=== PATIENT | female | born 1955 | race Caucasian/White ===

== ENCOUNTER 2017-07-07 18:26 | Inpatient (IN) ==
[2017-07-07] MEDS ORDERED: ASPIRIN 325 MG TABLET PO STA (19:02)
--- NOTE | 2017-07-07 19:31 | XRay Report ---
Portable chest Date: 07/07/2017 Clinical history: Chest pain Comparison: None Technique: Portable AP sitting chest Findings: The heart is borderline in size with cardiac fat pads and minimal uncoiling on the aorta. Calcified granulomata/nodes with minimal diffuse parenchymal findings at the lung bases. Degenerative changes are noted. Impression: Old healed granulomatous disease. Cardiac fat pads with atelectasis at the lung bases where it is difficult to exclude minimal infiltration/edema. PROCEDURE INTERPRETED AT [facility] DEPARTMENT OF RADIOLOGY Final Report Signed by: Dr. Blanka Bell
[2017-07-07 19:41] LABS: Basophils % 0.3 % (0.0-0.8); Eosinophils % 0.1 % (0.00-10.9); Hematocrit 41.2 VOL% (35.7-47.0); Immature Granulocytes % 0.5 %; Immature Granulocytes Absolute 0.07 #; Lymphocytes # 1.1 10*3/uL (1.4-4.0); Mean Corpuscular Hemoglobin 31 PG (27-34); Mean Corpuscular Volume 89.8 FL (87-102); Mean Platelet Volume 10.1 FL (9.6-12.0); Monocytes # 0.5 10*3/uL (0.11-0.8); Monocytes % 3.3 % (1.7-12.7); Neutrophils % 87.8 % (38.7-73.9); Platelet Count 275 T/CUMM (130-400); Red Blood Count 4.59 MC/CUMM (3.8-5.5); Red Cell Distribution Width 13.6 % (9.3-17.3); White Blood Count 13.7 T/CUMM (4-12)
[2017-07-07] MEDS ORDERED: ASPIRIN 325 MG TABLET ONE (19:44)
[2017-07-07 20:11] LABS: Calcium 9.6 MG/DL (8.5-10.1); Magnesium 2.6 MG/DL (1.8-2.4); Osmolality,Calculated 284.3 MOS/KG (273-304); Potassium 4.6 MMOL/L (3.5-5.1)
[2017-07-07] MEDS ORDERED: MAGNESIUM SULF RIDER 2 GM in PREMIX 1 EACH IV PRN (20:50)
[2017-07-07] MEDS ORDERED: MORPHINE 2 MG/1 ML SYRINGE IV PRN (20:50)
[2017-07-07] MEDS ORDERED: ENOXAPARIN 80 MG/0.8 ML SYRINGE SUBCUT STA (20:52)
--- NOTE | 2017-07-07 20:54 | Emergency Department Note ---
IKatelyn Emily, am scribing for, and in the presence of, Davey Alexis MD 19: 05. IReuben Kevin Lee, MD, personally performed the services described in this documentation, ascribed by Kenna Zepeda in my presence, and it is both accurate and complete . Arrival - Arrival Chief Complaint: Chest Pain Stated Complaint: chest pain ED Nursing Triage Note: PT C/O LEFT UPPER CHEST PAIN, ONSET AT 1600. PT WAS WATCHING TV AT ONSET. REPORTS GETTING REAL HOT AND VOMITED. STATES PAIN COMES AND GOES. Mode of Arrival: Ambulatory Limitations: No Limitations Source: Patient - History of Present Illness HPI Narrative: Pt is a 62 y/o female who came to ED with c/o chest pain while watching TV at 4pm. Pt had mild nausea with vomiting once that was water, but denies lifting heavy objects, rash, SOB, or fevers. Pt describes pain as moderate and sharp but comes in waves. PMHx of stroke in April 2017 with residual slurred speech. Pt has PCP in Dr. Musa Chvaez. Onset (ago): hour(s) Consistency: intermittent Severity: moderate Severity scale (1-10): 5 Quality: sharp Allergies/Adverse Reactions: Allergies Allergy/AdvReac Type Severity Reaction Status Date / Time No Known Allergies Allergy Verified 07/07/17 18:52 Home Medications: Home Medications Medication Instructions Recorded Confirmed Type Amlodipine Besylate 5 mg PO QAM 07/07/17 07/07/17 History Aspirin EC Tab 81 mg PO QAM 07/07/17 07/07/17 History Review of System - Review of System 12 point system: reviewed and no additional remarkable complaints except as stated - Review of System Constitutional: Absent: chills, fever Respiratory: Absent: cough, respiratory distress Cardiovascular: Present: chest pain (non radiating). Absent: dyspnea on exertion, edema, syncope Gastrointestinal: Present: nausea, vomiting (once). Absent: abdominal pain, diarrhea Musculoskeletal: Absent: arm pain, back pain, neck pain Skin: Absent: rash Neurological: Absent: headache Medical,Surgical,& Family Hx - Medical History Cardio: History of: Hypertension Neurology: History of: Cerebrovascular Accident (APRIL 2017) - Surgical History Surgical History: noncontributory - Family History Family History: noncontributory - Social History Smoking Status: Current every day smoker Frequency of Alcohol Use: None Type of Drug Use: None Marital Status: Single Lives With:: Alone Functional capacity: independent ambulation Exam Vital Signs: Vital Signs Temperature 97.8 F 07/07/17 19:00 Pulse Rate 74 07/07/17 19:00 Respiratory Rate 18 07/07/17 19:00 Blood Pressure 181/81 07/07/17 19:00 O2 Sat by Pulse Oximetry 97 07/07/17 19:30 - General General appearance: alert, in no apparent distress - Head Head exam: Present: atraumatic, normocephalic - Eye Eye exam: Present: PERRL, EOMI - ENT ENT exam: Present: mucous membranes moist. Absent: mucous membranes dry - Neck Neck exam: Present: full ROM, trachea midline - Chest Chest inspection: Present: symmetric chest wall rise. Absent: tenderness - Respiratory Respiratory exam: Present: normal lung sounds bilaterally. Absent: accessory muscle use, respiratory distress - Cardiovascular Cardiovascular exam: Present: regular rate, normal rhythm, normal heart sounds - Extremities Exam Extremities exam: Present: full ROM - Neurological Exam Neurological exam: Present: alert, oriented X3, CN II-XII intact, other ( slurred speech residual from previous stroke) - Psychiatric Psychiatric exam: Present: normal affect, normal mood - Skin Skin exam: Present: warm, dry Course Course Narrative: concerning hx with elvated trop will admit for cath vs stress test and serial enzymens Results - Labs CBC & BMP: 07/07/17 19:25 07/07/17 19:25 Lab Results: I have reviewed the patients labs Labs: Laboratory Tests 07/07/17 19:25 WBC 13.7 H RBC 4.59 Hgb 14.0 Hct 41.2 Plt Count 275 Neut % (Auto) 87.8 H Lymph % (Auto) 8.0 L Neut # (Auto) 12.0 H Lymph # (Auto) 1.1 L Laboratory Tests 07/07/17 19:25 Sodium 141 Potassium 4.6 Chloride 106 Carbon Dioxide 29 Anion Gap 10.6 BUN 22 H Creatinine 0.80 GFR Calculation 83 BUN/Creatinine Ratio 27.00 H Glucose 111 H Calculated Osmolality 284.3 Calcium 9.6 Magnesium 2.6 H Laboratory Tests 07/07/17 19:25 Troponin I 0.274 H - Diagnostic Findings Procedure: Chest x-ray: report reviewed by me (Old healed granulomatous disease. Cardiac fat pads with atelectasis at the lung bases where it is difficult to exclude minimal infiltration/edema.) Disposition Clinical Impression: NSTEMI (non-ST elevated myocardial infarction) Case discussed with: patient Disposition: Still a Patient Condition: Stable
[2017-07-07] MEDS ORDERED: ENOXAPARIN 80 MG/0.8 ML SYRINGE SUBCUT ONE (21:08)
[2017-07-07] MEDS ORDERED: NICOTINE 21 MG/24 HR PATCH TRANSDERM PRN (22:00)
[2017-07-07] MEDS ORDERED: MAGNESIUM SULF RIDER 4 GM in PREMIX 1 EACH IV PRN (22:00)
--- NOTE | 2017-07-08 04:04 | EKG Report ---
Please refer to the EKG image. Final interpretation is pending.
--- NOTE | 2017-07-08 04:05 | EKG Report ---
Stationary ECG Study 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
--- NOTE | 2017-07-08 05:58 | EKG Report ---
Please refer to the EKG image. Final interpretation is pending.
[2017-07-08] MEDS ORDERED: MAGNESIUM SULF RIDER 2 GM in PREMIX 1 EACH IV PRN (08:32)
[2017-07-08] MEDS ORDERED: DIAZEPAM 5 MG TABLET PO ONE (08:32)
[2017-07-08] MEDS ORDERED: POTASSIUM CHLORIDE RIDER 10 MEQ in PREMIX 1 EACH IV PRN (08:32)
[2017-07-08] MEDS ORDERED: diphenhydrAMINE CAP 25 MG CAPSULE PO ONE (08:32)
--- NOTE | 2017-07-08 08:37 | Cardiology History & Physical ---
I, Nini Nunes NP, am scribing for, and in the presence of, Luis Fernando Menendez MD 08:34. Assessment and Plan (1) CVA, old, aphasia Status: Acute Current Visit: Yes (2) NSTEMI (non-ST elevated myocardial infarction) Status: Acute Assessment and plan: 1. 62-year-old female smoker with history of stroke April 2017 now with 2 hours of chest discomfort or diaphoresis ruled in for non-STEMI 2. She has no recurring pain and EKG shows no acute changes 3. Agree with aspirin and Lovenox 4. At high intensity statin therapy 5. Heart catheterization today to define her coronary anatomy with intervention is appropriate 6. We discussed the absolute necessity of completely stopping all cigarette smoking I discussed with the patient the risks and benefits of heart catheterization including but not limited to: , stroke, heart attack, vascular damage, reaction to medicine or dye, bleeding requiring blood transfusion, failure of the procedure, and the possible need for planned or emergency surgery. I have answered all the patient's questions regarding the procedure, and the patient is agreeable to proceed. Current Visit: Yes History of Present Illness Chief complaint: Chest pain History of present illness: DIRECTOR SPORTS: Dr. Menendez (new) PCP: Dr. Humberto khoury Ms. Garcia is a 62 WF, with no prior history of cardiac problems. The patient came in to the ER yesterday afternoon after experiencing a sharp pain under her left armpit. The patient states she was sitting in her chair when this occurred , she immediately felt hot, became diaphoretic, and nauseated with vomiting 1. The patient denies aggravating or relieving factors, but the pain did eventually go away. She does report some reproducible soreness to the left chest wall this morning. The patient denies fatigue, shortness of breath, edema to the extremities. The patient's cardiac risk factors are significant for smoking, stroke, hypertension, Home Medications Medication Instructions Recorded Confirmed Type Amlodipine Besylate 5 mg PO QAM 07/07/17 07/07/17 History Aspirin EC Tab 81 mg PO QAM 07/07/17 07/07/17 History Allergies Allergy/AdvReac Type Severity Reaction Status Date / Time No Known Allergies Allergy Verified 07/07/17 18:52 Medical,Surgical,& Family Hx - Medical History Cardio: History of: Hypertension No history of: Aneurysm, Cardiac Dysrhythmia, Cerebrovascular Disease, Congenital Heart Disease, CHF, CAD, MS, Pacemaker, PVD, Valvular Heart Disease, Cardiovascular Problems Neurology: History of: Cerebrovascular Accident (APRIL 2017) No history of: Brain Aneurysm, Cerebral Hemorrhage, Cerebral Palsy, Dementia , Migraine, Multiple Sclerosis, Parkinson's Disease, Peripheral Neuropathy, Seizures, TIA, Vertigo, Neurologocal Cancer Endocrine: No history of: Dyslipidemia Respiratory: No history of: Asthma, Bronchitis, COPD, Intubation, Obstructive Sleep Apnea , Pulmonary Embolism, Pulmonary Hypertension, Pneumonia, Lung Cancer, Respiratory Problems Renal: No history of: Renal (Kidney) Cancer, Dialysis, Renal Failure, Renal Problems Genitourinary: No history of: Bladder Problem, Kidney Stones, Recurring Urinary Tract Infections, Genitourinary Cancer, Problems Gastrointestinal: No history of: Bowel Obstruction, Clostridium Difficile, Crohn's Disease, Diverticulitis/ Diverticulosis, Esophageal Varices, GERD, Gastrointestinal Bleed , Hemorrhoids, Hematochezia, Hepatitis, Liver Problems, Pancreatitis, Polyps, Ulcerative Colitis, Gastrointestinal Cancer, GI Problems - Surgical History Cardiac Surgeries: Patient Denies: Femoral-Popliteal Bypass Graft, Cardiac Catheterization, Cardiac Surgery, Carotid Endarterectomy, Internal Defibrillator, Vascular Access Devices Thoracic Surgeries: Patient denies;: Kidney (Renal Surgery), Lithotripsy, Nephrectomy, Lobectomy Neurologic Surgeries: Patient denies: Brain Aneurysm, Cerebral Hemorrhage, Neurologic Surgery HEENT Surgeries: Patient denies: Carotid Endarterectomy Abdominal Surgeries: Patient denies: Abdominal Surgery, Appendectomy, Cholecystectomy, Colonoscopy , Gastric Bypass Surgery, EGD, Hernia Repair, Splenectomy Reproductive Surgeries: Patient denies;: Breast Surgery, Section, Cystoscopy, Dilation and Curettage, Genitourinary Surgery, Gynecologic Surgery, Hysterectomy, Tubal Ligation - Social History Smoking Status: Current every day smoker Frequency of Alcohol Use: None Type of Drug Use: None Cardiology Physical Exam - Constitutional Vitals: Vital Signs Temp Pulse Resp BP Pulse Ox 98.1 F 64 18 138/82 98 07/08/17 07:46 07/08/17 07:46 07/08/17 07:46 07/08/17 07:46 07/08/17 07:46 Intake and Output 07/07/17 07/08/17 07/08/17 23:59 07:59 15:59 Intake Total 200 / 200 Balance 200 / 200 Intake: Oral 200 / 200 Other: Voiding Method Toilet # Voids 1 # Bowel Movements 0 Weight 160 lb 160 lb Patient Weight 07/08/17 23:59 Weight 160 lb General appearance: normal weight, no acute distress - Head Head exam: Present: normal inspection, normocephalic, atraumatic - Neck Neck exam: Present: normal inspection - Respiratory Respiratory exam: Present: rales. Absent: rhonchi, stridor, wheezes - Cardiovascular Cardiovascular exam: Present: regular rate and rhythm. Absent: diastolic murmur , rubs, systolic murmur - GI/Abdominal GI/Abdominal exam: Present: soft. Absent: tenderness - Extremities Exam Extremities exam: Absent: edema Result/EKG - Labs CBC & BMP: 07/07/17 19:25 07/07/17 19:25 Labs: Laboratory Results - last 24 hr 07/07/17 07/07/17 07/07/17 19:25 19:25 19:25 WBC 13.7 H RBC 4.59 Hgb 14.0 Hct 41.2 MCV 89.8 MCH 31 MCHC 34.0 RDW 13.6 Plt Count 275 MPV 10.1 Neut % (Auto) 87.8 H Lymph % (Auto) 8.0 L [place] % (Auto) 3.3 Eos % (Auto) 0.1 Baso % (Auto) 0.3 Neut # (Auto) 12.0 H Lymph # (Auto) 1.1 L [place] # (Auto) 0.5 Eos # (Auto) 0.0 Baso # (Auto) 0.0 Immature Gran % 0.5 Nucleated RBC % 0.0 Immature Gran # 0.07 Nucleated RBCs # 0.00 Immature Plt Fraction 0.0 Sodium 141 Potassium 4.6 Chloride 106 Carbon Dioxide 29 Anion Gap 10.6 BUN 22 H Creatinine 0.80 GFR Calculation 83 BUN/Creatinine Ratio 27.00 H Glucose 111 H Calculated Osmolality 284.3 Calcium 9.6 Magnesium 2.6 H Troponin I 0.274 H 07/07/17 07/08/17 23:40 02:44 WBC RBC Hgb Hct MCV MCH MCHC RDW Plt Count MPV Neut % (Auto) Lymph % (Auto) [place] % (Auto) Eos % (Auto) Baso % (Auto) Neut # (Auto) Lymph # (Auto) [place] # (Auto) Eos # (Auto) Baso # (Auto) Immature Gran % Nucleated RBC % Immature Gran # Nucleated RBCs # Immature Plt Fraction Sodium Potassium Chloride Carbon Dioxide Anion Gap BUN Creatinine GFR Calculation BUN/Creatinine Ratio Glucose Calculated Osmolality Calcium Magnesium Troponin I 2.090 H D 3.910 H D Quality Measures - Stroke Symptom Onset Unknown: No I, Luis Fernando Menendez MD, personally performed the services described in this documentation, ascribed by Nini Nunes NP in my presence, and it is both accurate and complete 837 .
[2017-07-08] MEDS ORDERED: LIDOCAINE 1% 20 ML VIAL ONE (08:42)
[2017-07-08] MEDS ORDERED: DIAZEPAM 5 MG TABLET ONE (08:47)
[2017-07-08] MEDS: SODIUM CHLORIDE 0.45% 1,000 ML IV SCH ×2 (08:58→18:05)
[2017-07-08] MEDS: ATORVASTATIN 80 MG TABLET PO SCH ×2 (08:58→08:59)
[2017-07-08] MEDS ORDERED: HYDROmorphone 2 MG/1 ML VIAL ONE (08:59)
[2017-07-08] MEDS ORDERED: MIDAZOLAM 2 MG/2 ML VIAL ONE (09:00)
[2017-07-08] MEDS ORDERED: ENOXAPARIN 60 MG/0.6 ML SYRINGE ONE (09:22)
[2017-07-08] MEDS ORDERED: TICAGRELOR 90 MG TABLET ONE (09:23)
[2017-07-08] MEDS ORDERED: NITROGLYCERIN SL 0.4 MG TABLET SL PRN (09:37)
[2017-07-08] MEDS ORDERED: HYDROmorphone 2 MG/1 ML VIAL IV PRN (09:37)
[2017-07-08] MEDS ORDERED: ZALEPLON 5 MG CAPSULE PO PRN (09:37)
--- NOTE | 2017-07-08 09:47 | Cardiac Catheterization ---
Date of Procedure:: 07/08/17 Post-op diagnosis: same Procedure: Procedure performed: 1. Left heart catheterization 2. Coronary angiography 3. Left ventriculography 4. Angioplasty and stenting of mid RCA with drug-eluting stent (3.5 x 23 [place]'s ) 5. Right femoral arterial be closed with Angio-Seal device Brief clinical summary: Ms. Garcia is a 62-year-old smoker with stroke earlier this year who presented with non-STEMI after 2 hours of chest discomfort. Description of procedure: After obtaining informed consent, the right groin was prepped and draped in the usual sterile fashion. Next a short 6 [place] sheath was placed in the right femoral artery using a modified Seldinger technique, after the patient received IV sedation and local anesthetic. Next a JL4 catheter was advanced over a guidewire under fluoroscopic guidance, and was engaged to the left coronary artery after which angiography was performed in multiple views. This was then removed over a wire, and a JR4 catheter was advanced in similar fashion, and was engaged to the right coronary artery after which angiography was performed in multiple views. Next a bent pigtail catheter was advanced into the left ventricle, where hemodynamic measurements were obtained, and left ventriculography was performed. Percutaneous coronary intervention was then performed as described below. After intervention, an angiogram of the sheath showed that it was inserted in the right common femoral artery in a vessel suitable for closure. Hemostasis was obtained with Angio- Seal device with no residual bleeding. 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 Percutaneous coronary mention: The patient received Lovenox full dose just over 12 hours ago. I gave an additional 0.5 mg/kg of intravenous Lovenox prior to procedure. She is Hu on aspirin we loaded her with Brilinta on the table before the procedure. A hockey-stick 1 guiding cath was advancing his right coronary artery provided fair support. Next a pro-water wire was advanced to the distal RCA little difficulty. Next a 3.0 x 15 noncompliant balloon was advanced crosshair disease was dilated to just under nominal pressures. This was then removed a 3.5 x 23 mm Jani stent was advanced crosshair disease was deployed at nominal pressures. The stent appeared slightly undersized so I dilated to rated burst pressure of 3.1 mm which achieved an excellent radiographic result. The patient tolerated procedure well without complication. Coronary angiography: Left main coronary was normal developed and free disease per left introducing arteries of average caliber tapers distally with a distal LAD bridge but without stenosis. It just does reach the apex. Gives off a slightly thinner than average for long diagonal branch after a 30-40% proximal stenosis in the LAD. The circumflex gives off a long average caliber ramus branch and an average caliber OM1 as well as a tiny OM 2 branch. There are mild irregularities in the circumflex system. The right coronary is the dominant vessel is of average caliber. Gives off an average caliber PDA and posterolateral. There is a critical 99% high mid RCA stenosis. Left ventriculography: Left ventricle normal size with normal LV systolic function. He has some ejection fraction 60% without segmental wall motion normality. There is a most 1+ mitral regurgitation. Impression: 1. Normal LV systolic function with ejection fraction estimated 60% without segmental wall motion normality 2. Right dominant system 3. Coronary artery disease as described above including but not limited to: A. 30-40% proximal LAD stenosis B. 99% discrete high mid RCA stenosis 4. Status post angioplasty and stenting of mid RCA disease with drug-eluting stent (3.5 x 23 mm [place]'s dilated to 3.1 mm) with excellent result. Recommendation discussion: I believe achieved very good result with regard to stenting Mr. Garcia's culprit mid RCA lesion. Should he continue on dual antiplatelet therapy, and avoid squatting strain lifting for the next week. She will be observed overnight on gentle hydration. Anesthesia: minimal conscious sedation Surgeon / Physician: Luis Fernando Menendez Drawbench Operator: other Estimated blood loss: minimal Specimens: none sent Condition: stable Disposition: floor - Medications / Follow-up
--- NOTE | 2017-07-08 10:07 | EKG Report ---
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
[2017-07-08 10:55] LABS: INR 1.1; PT Patient Result 11.2 SECS; Partial Thromboplastin Time 36.9 SECS (0-40)
[2017-07-08 11:30] LABS: CKMB % 7.1 %
[2017-07-08 11:32] LABS: Troponin I Only 4.84 NG/ML (0.00-0.045)
[2017-07-08] MEDS: TICAGRELOR 90 MG TABLET PO SCH (21:02)
[2017-07-09 05:04] LABS: Basophils % 0.4 % (0.0-0.8); Eosinophils # 0.1 10*3/uL (0.0-0.87); Eosinophils % 1.7 % (0.00-10.9); Hematocrit 39.6 VOL% (35.7-47.0); Hemoglobin 13.4 GM/DL (12.0-16.0); Immature Granulocytes % 0.4 %; Immature Granulocytes Absolute 0.03 #; Lymphocytes # 1.6 10*3/uL (1.4-4.0); Lymphocytes % 21.3 % (21.3-54.2); Mean Corpuscular HGB Conc 33.8 GM/DL (32-36); Mean Corpuscular Hemoglobin 30 PG (27-34); Mean Corpuscular Volume 89.6 FL (87-102); Mean Platelet Volume 10.3 FL (9.6-12.0); Monocytes # 0.6 10*3/uL (0.11-0.8); Monocytes % 7.4 % (1.7-12.7); Neutrophils # 5.3 10*3/uL (1.4-7.4); Neutrophils % 68.8 % (38.7-73.9); Platelet Count 267 T/CUMM (130-400); Red Blood Count 4.42 MC/CUMM (3.8-5.5); Red Cell Distribution Width 13.8 % (9.3-17.3); White Blood Count 7.7 T/CUMM (4-12)
[2017-07-09 05:36] LABS: Calcium 9.3 MG/DL (8.5-10.1); Magnesium 2.4 MG/DL (1.8-2.4); Osmolality,Calculated 276.5 MOS/KG (273-304); Potassium 4.1 MMOL/L (3.5-5.1)
[2017-07-09 05:42] LABS: CKMB % 3.9 %
[2017-07-09 05:44] LABS: Troponin I Only 2.98 NG/ML (0.00-0.045)
--- NOTE | 2017-07-09 08:05 | EKG Report ---
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
[2017-07-09] MEDS ORDERED: NICOTINE 14 MG/24 HR PATCH TRANSDERM SCH (09:00)
[2017-07-09] MEDS: TICAGRELOR 90 MG TABLET PO SCH ×2 (09:08→20:17)
[2017-07-09] MEDS: SODIUM CHLORIDE 0.45% 1,000 ML IV SCH ×2 (09:08→14:44)
[2017-07-09] MEDS: ASPIRIN EC 81 MG TABLET PO SCH (09:08)
[2017-07-09] MEDS: ATORVASTATIN 80 MG TABLET PO SCH (09:08)
--- NOTE | 2017-07-09 11:24 | Discharge Summary ---
Hospital Course - Hospital Course Hospital Course: Ms. Garcia presented after 2 hours of chest pain and was diagnosed with non- STEMI on follow-up cardiac panel is her troponin went from 0.2 to over 2. Her chest pain did not return. Heart catheterization on July 08 in the morning she had a critical mid RCA lesion which was stented with a 3 mm drug-eluting stent with good result. She had only 30-40% proximal LAD stenosis otherwise. She normal ejection fraction 60%. Her right groin looks good today without bruit bleeding or hematoma. She is anxious for discharge. She says she is ambulate without difficulty. I discussed the absolute need to take baby aspirin Brilinta without fail. Also discussed her absolute need to stop all smoking. She is agreed to try Chantix and if it is too expensive I recommended she change to nicotine patches and/or gum. She is anxious for discharge and I believe she is received maximal hospital benefit at this point. She starting low-dose beta-mykel this morning Toprol 25 mg daily. Of note she had a stroke earlier this year I believe in March but has had no change in her symptoms from this during hospitalization per Diagnosis - Discharge Diagnosis (1) CVA, old, aphasia Status: Acute (2) NSTEMI (non-ST elevated myocardial infarction) Status: Acute Specialty Discharge - Follow Up or Referrals Follow up with: Gene Hughes CFNP [Advanced Practice Nurse] - 1 Week (With EKG) Luis Fernando Menendez MD [Physician] - 1 Month (With FLP CMP CBC EKG) Discharge Plan - Discharge Medications No Action Amlodipine Besylate 5 mg PO QAM Aspirin EC Tab 81 mg PO QAM - Follow Up or Referral - Forms/Instructions Instructions: Myocardial Infarction (GEN), Left Heart Catheterization (DC), How to Stop Smoking (GEN), Heart Healthy Diet (GEN), Cigarette Smoking and Your Health (GEN), Coronary Intravascular Stent Placement, Grain Trimmer (GEN) Exam - Constitutional Vitals: Period Temp Pulse Resp BP Sys/Mcgill Pulse Ox Last 24 Hr 97.7 F-98.6 F 60-74 18-21 118-144/55-97 91-100 General appearance: no acute distress, over weight - Head Head exam: Present: normal inspection, normocephalic, atraumatic - Respiratory Respiratory exam: Present: clear to auscultation bilaterally. Absent: stridor, wheezes - Cardiovascular Cardiovascular exam: Present: regular rate and rhythm. Absent: systolic murmur - GI/Abdominal GI/Abdominal exam: Present: soft. Absent: tenderness - Extremities Exam Extremities exam: Present: other (Right groin without bleeding bruit or hematoma ). Absent: edema Discharge Results Procedures and tests throughout hospitalization: Pending Orders 07/08/17 08:36 CL heart Routine Labs on day of discharge: Labs from last 24 hours 07/09/17 07/09/17 07/09/17 04:43 04:42 04:42 WBC 7.7 D RBC 4.42 Hgb 13.4 Hct 39.6 MCV 89.6 MCH 30 MCHC 33.8 RDW 13.8 Plt Count 267 MPV 10.3 Neut % (Auto) 68.8 Lymph % (Auto) 21.3 [place] % (Auto) 7.4 Eos % (Auto) 1.7 Baso % (Auto) 0.4 Neut # (Auto) 5.3 Lymph # (Auto) 1.6 [place] # (Auto) 0.6 Eos # (Auto) 0.1 Baso # (Auto) 0.0 Immature Gran % 0.4 Nucleated RBC % 0.0 Immature Gran # 0.03 Nucleated RBCs # 0.00 Immature Plt Fraction 0.0 Sodium 139 Potassium 4.1 Chloride 107 Carbon Dioxide 25 Anion Gap 11.1 BUN 16 Creatinine 0.60 GFR Calculation 102 BUN/Creatinine Ratio 26.00 H Glucose 84 Calculated Osmolality 276.5 Calcium 9.3 Magnesium 2.4 Total Creatine Kinase 206 H D CK-MB (CK-2) 8.0 H D CK and CKMB Interp 3.9 Troponin I 2.980 H D 07/08/17 10:36 WBC RBC Hgb Hct MCV MCH MCHC RDW Plt Count MPV Neut % (Auto) Lymph % (Auto) [place] % (Auto) Eos % (Auto) Baso % (Auto) Neut # (Auto) Lymph # (Auto) [place] # (Auto) Eos # (Auto) Baso # (Auto) Immature Gran % Nucleated RBC % Immature Gran # Nucleated RBCs # Immature Plt Fraction Sodium Potassium Chloride Carbon Dioxide Anion Gap BUN Creatinine GFR Calculation BUN/Creatinine Ratio Glucose Calculated Osmolality Calcium Magnesium Total Creatine Kinase 320 H CK-MB (CK-2) 22.7 H CK and CKMB Interp 7.1 Troponin I 4.840 H D DS: Provider Date of admission: 07/07/17 20:50 Primary care physician: . No PCP Attending physician on admission: Luis Fernando Garrett Consults: 07/08/17 02:09 Consult to Pastoral Services [CONS] Routine Comment: Pastoral Screen: Request Automation Controls Engineer Visit Pastoral Screen Source of Request: Patient 07/08/17 06:29 Consult to Cardiac Rehabilitation [CONS] Routine Reason for Cardiac Rehabilitation: Risk Factor Modification 07/08/17 08:43 Consult to Pastoral Services [CONS] Routine Comment: Pastoral Screen: Request Automation Controls Engineer Visit Pastoral Screen Source of Request: Patient 07/08/17 09:37 Consult to Cardiac Rehabilitation [CONS] Routine Reason for Cardiac Rehabilitation: Appt Out Pt Cardiac Rehab Consult Comment: nstemi; stent Discharging clinician: Luis Fernando Garrett
[2017-07-09] MEDS: METOPROLOL SUCCINATE XL 25 MG TABLET PO SCH (12:15)
[2017-07-09] MEDS ORDERED: HYDROmorphone 2 MG/1 ML VIAL IV ONE (14:18)
[2017-07-09] MEDS: ONDANSETRON 4 MG/2 ML VIAL IV PRN ×2 (15:15→20:16)
--- NOTE | 2017-07-09 15:57 | Ultrasound Report ---
US arterial duplex LE RT Indication: Right groin pain after heart catheter. Ultrasound right groin: Cote scale, color Doppler and pulsed Doppler interrogation of the right groin performed. Findings: There is an 11 mm partially thrombosed pseudoaneurysm extending off the anterior aspect of the right common femoral artery. Flow in the right common femoral artery is extremely narrowed, presumably from severe atheromatous disease. Arterial waveforms are present. Right common femoral vein shows no evidence of thrombus and has normal venous waveforms present. Impression: Partially thrombosed 11 mm right groin pseudoaneurysm. Limited flow in the right common femoral artery, presumably from atheromatous disease. PROCEDURE INTERPRETED AT [facility] DEPARTMENT OF RADIOLOGY Final Report Signed by: Cristino Romero M.D.
[2017-07-09] MEDS ORDERED: HYDROmorphone 2 MG/1 ML VIAL IV PRN (18:04)
[2017-07-09] MEDS ORDERED: MORPHINE 2 MG/1 ML SYRINGE IV ONE (19:50)
--- NOTE | 2017-07-09 20:26 | Event Note ---
Patient developed hematoma when she got up this morning, and ultrasound showed pseudoaneurysm 1.1 cm. I held pressure for 10 minutes and she will be on bedrest tonight. Will recheck in the morning.
[2017-07-10] MEDS: SODIUM CHLORIDE 0.45% 1,000 ML IV SCH (02:16)
[2017-07-10 08:18] VITALS: BP 123/57
[2017-07-10] MEDS: ASPIRIN EC 81 MG TABLET PO SCH (08:43)
[2017-07-10] MEDS: ATORVASTATIN 80 MG TABLET PO SCH (08:43)
[2017-07-10] MEDS: METOPROLOL SUCCINATE XL 25 MG TABLET PO SCH (08:43)
[2017-07-10] MEDS: TICAGRELOR 90 MG TABLET PO SCH (08:43)
--- NOTE | 2017-07-10 09:20 | Ultrasound Report ---
US arterial duplex LE RT Indication: Follow-up pseudoaneurysm right groin. Right groin ultrasound: Grayscale, color Doppler and pulsed Doppler interrogation right groin. Comparison yesterday. 20 mm right groin hematoma is now present at the site of the pseudoaneurysm. There is no color flow present in the pseudoaneurysm sac. Arterial and venous waveforms are present within the right common femoral artery and vein respectively. Right common femoral artery waveforms are attenuated and biphasic in nature, somewhat difficult to see and color Doppler imaging. Impression: Right groin hematoma. Thrombosis of right groin pseudoaneurysm. Severe atheromatous disease right common femoral artery. PROCEDURE INTERPRETED AT [facility] DEPARTMENT OF RADIOLOGY Final Report Signed by: Cristino Romero M.D.
--- NOTE | 2017-07-10 10:01 | Discharge Summary ---
Hospital Course - Hospital Course Hospital Course: Ms. Garcia presented after 2 hours of chest pain and was diagnosed with non- STEMI on follow-up cardiac panel is her troponin went from 0.2 to over 2. Her chest pain did not return. Heart catheterization on July 08 in the morning she had a critical mid RCA lesion which was stented with a 3 mm drug-eluting stent with good result. She had only 30-40% proximal LAD stenosis otherwise. She normal ejection fraction 60%. Her right groin looks good today without bruit bleeding or hematoma. She is anxious for discharge. She says she is ambulate without difficulty. I discussed the absolute need to take baby aspirin Brilinta without fail. Also discussed her absolute need to stop all smoking. She is agreed to try Chantix and if it is too expensive I recommended she change to nicotine patches and/or gum. She is anxious for discharge and I believe she is received maximal hospital benefit at this point. She starting low-dose beta-mykel this morning Toprol 25 mg daily. Of note she had a stroke earlier this year I believe in March but has had no change in her symptoms from this during hospitalization per Addendum: Ms. Garcia had sudden pain in her right groin when she got up to use the bathroom yesterday morning and had hematoma develop. Follow-up ultrasound showed hematoma with pseudoaneurysm. I held pressure yesterday for 10 minutes over it and she had no trouble with it during the night. She was on bedrest during the night and this morning or hematoma was a little better. Ultrasound shows closure of the pseudoaneurysm with atherosclerotic disease that was severe. We discussed her need to take Brilinta and baby aspirin without fail. She has been given a discount card. Diagnosis - Discharge Diagnosis (1) CVA, old, aphasia Status: Acute (2) NSTEMI (non-ST elevated myocardial infarction) Status: Acute Specialty Discharge - Follow Up or Referrals Follow up with: Gene Hughes CFNP [Advanced Practice Nurse] - 1 Week (With EKG) Luis Fernando Menendez MD [Physician] - 1 Month (With [facility] CBC EKG) Discharge Plan - Discharge Medications New Aspirin EC Tab 81 mg PO DAILY tablet Atorvastatin [Lipitor] 80 mg PO DAILY tablet Nitroglycerin Sl Tab [Nitrostat] 0.4 mg SL Q5M PRN #30 tablet PRN Reason: Chest Pain Ticagrelor [Brilinta] 90 mg PO BID #120 tablet Metoprolol Succinate Xl [Toprol Xl] 25 mg PO DAILY #30 tablet Discontinued Amlodipine Besylate 5 mg PO QAM Aspirin EC Tab 81 mg PO QAM - Follow Up or Referral Follow Up: Gene Hughes CFNP [Advanced Practice Nurse] - 1 Week (With EKG) Luis Fernando Menendez MD [Physician] - 1 Month (With [facility] CBC EKG) - Forms/Instructions Instructions: Myocardial Infarction (GEN), Left Heart Catheterization (DC), How to Stop Smoking (GEN), Heart Healthy Diet (GEN), Cigarette Smoking and Your Health (GEN), Coronary Intravascular Stent Placement, Vp Software Support (GEN) Exam - Constitutional Vitals: Period Temp Pulse Resp BP Sys/Mcgill Pulse Ox Last 24 Hr 95.2 F-98.5 F 60-85 18-20 113-148/53-67 88-100 General appearance: normal weight, no acute distress - Head Head exam: Present: normal inspection, normocephalic, atraumatic - Respiratory Respiratory exam: Present: clear to auscultation bilaterally - Cardiovascular Cardiovascular exam: Present: regular rate and rhythm. Absent: diastolic murmur , rubs - GI/Abdominal GI/Abdominal exam: Present: soft. Absent: tenderness - Extremities Exam Extremities exam: Present: other (Smaller right groin hematoma with no bruit tenderness or bleeding). Absent: edema - Back Exam Back exam: Present: normal inspection - Neurological Exam Neurological exam: Present: alert, oriented X3 - Psychiatric Psychiatric exam: Present: normal affect Discharge Results Procedures and tests throughout hospitalization: Pending Orders 07/08/17 08:36 CL heart Routine DS: Provider Date of admission: 07/07/17 20:50 Primary care physician: . No PCP Attending physician on admission: Luis Fernando Garrett Consults: 07/08/17 02:09 Consult to Pastoral Services [CONS] Routine Comment: Pastoral Screen: Request Boat Person Visit Pastoral Screen Source of Request: Patient 07/08/17 06:29 Consult to Cardiac Rehabilitation [CONS] Routine Reason for Cardiac Rehabilitation: Risk Factor Modification 07/08/17 08:43 Consult to Pastoral Services [CONS] Routine Comment: Pastoral Screen: Request Boat Person Visit Pastoral Screen Source of Request: Patient 07/08/17 09:37 Consult to Cardiac Rehabilitation [CONS] Routine Reason for Cardiac Rehabilitation: Appt Out Pt Cardiac Rehab Consult Comment: nstemi; stent Discharging clinician: Luis Fernando Garrett
== END 2017-07-10 10:40 | disposition home or self-care (01) | DRG 247 ==
LOC: N.ED 18:26 → N.EDINP 20:50 → N.TELES 21:47
PROVIDERS: ADMIT Internal Medicine Cardiovascular Disease; ATTEND Internal Medicine Cardiovascular Disease
PROC: CLCCHCL (ICD-10-PCS; 2017-07-08 09:45)